=== PATIENT | female | born 1970 | race Caucasian/White ===

== ENCOUNTER 2019-05-27 19:06 | Emergency (ER) | payer MEDICARE, MEDICAID ==
[~2019-05-27] VITALS: Ht 162.6 cm; Wt 114.0 kg
[~2019-05-27 19:06] MED LIST: LEVO50TA5 PO
[2019-05-27 19:07] VITALS: BP 129/82
[2019-05-27] MEDS ORDERED: KETOROLAC 30 MG/1 ML ONE (19:41)
[2019-05-27] MEDS ORDERED: KETOROLAC 30 MG/1 ML IM ONE (20:00)
== END 2019-05-27 20:11 | disposition home or self-care (01) ==
LOC: ED 20:05
DX: M25.511 Pain in right shoulder (principal); E78.00 Pure hypercholesterolemia, unspecified; Z86.39 Personal history of other endocrine, nutritional and metabolic disease
CPT/HCPCS: 96372; 99283; J1885